=== PATIENT | male | born 1960 | race Two or more races ===

== ENCOUNTER 2021-12-09 20:43 | Emergency (ER) | payer OTHER ==
[~2021-12-09] VITALS: Ht 182.9 cm; Wt 96.2 kg
[2021-12-09 21:20] VITALS: BP 154/99
== END 2021-12-10 00:36 | disposition left against medical advice (07) ==
LOC: ER 20:47
DX: R09.81 Nasal congestion (principal); Z53.21 Procedure and treatment not carried out due to patient leaving prior to being seen by health care provider